=== PATIENT | female | born 1995 | race Caucasian/White ===

== ENCOUNTER 2017-03-24 19:29 | Emergency (ER) | payer BC ==
[2017-03-24 19:36] VITALS: BP 140/81
--- NOTE | 2017-03-24 20:22 | UC ---
Skin Complaint HPI - HPI Summary HPI Summary: sores on face x 2 days left lower lip and right chin area + tender , red, no fever, - History of Current Complaint Chief Complaint: [facility] Time Seen by Provider: 03/24/17 20:05 Stated Complaint: BUMPS ON FACE Hx Obtained From: Patient Hx Last Menstrual Period: 03/22/17 ?: No Onset/Duration: Gradual Onset, Lasting Days - 2, Still Present Timing: Constant Onset Severity: Moderate Current Severity: Moderate Character: Pain, Redness, Painful Aggravating Factor(s): Touch Alleviating Factor(s): Nothing Associated Signs & Symptoms: Positive: Negative - Allergy/Home Medications Allergies/Adverse Reactions: Allergies Allergy/AdvReac Type Severity Reaction Status Date / Time No Known Allergies Allergy Verified 03/24/17 19:35 Review of Systems Constitutional: Negative Skin: Rash Eyes: Negative ENT: Negative Respiratory: Negative Cardiovascular: Negative Is Patient Immunocompromised?: No All Other Systems Reviewed And Are Negative: Yes PMH/Surg Hx/FS Hx/Imm Hx Previously Healthy: Yes - Surgical History Surgical History: Yes Surgery Procedure, Year, and Place: WISDOM TEETH EXTRACTIONS - Family History Known Family History: Positive: Cardiac Disease Negative: Diabetes - Social History Alcohol Use: Occasionally Substance Use Type: None Smoking Status (MU): Never Smoked Tobacco Physical Exam Triage Information Reviewed: Yes Appearance: Well-Appearing, No Pain Distress, Well-Nourished Vital Signs: Initial Vital Signs Temp 98.5 F 03/24/17 19:30 Pulse 62 03/24/17 19:30 Resp 16 03/24/17 19:30 BP 140/81 03/24/17 19:30 Pulse Ox 100 03/24/17 19:30 Vital Signs Reviewed: Yes Eyes: Positive: Conjunctiva Clear ENT: Positive: Normal ENT inspection, Hearing grossly normal, Pharynx normal Neck: Positive: Supple, Nontender, No Lymphadenopathy Respiratory: Positive: Chest non-tender, Lungs clear, Normal breath sounds Cardiovascular: Positive: RRR, No Murmur, Pulses Normal Skin: Positive: rashes - visicular rash left lower lip and righ chin area + erythema, tender , Course/Dx - Diagnoses Provider Diagnoses: cold sores Discharge - Discharge Plan Condition: Stable Disposition: HOME Prescriptions: Mupirocin 2% OINT* [Bactroban 2 % Oint*] 1 applic TOPICAL BID #1 tube ValACYclovir (*) [Valtrex 500 mg (*)] 500 mg PO BID #6 tab Patient Education Materials: Oral Herpes Simplex Virus Infections (ED) Referrals: Non Staff,Doctor [Primary Care Provider] - If Needed
== END 2017-03-24 20:19 | disposition home or self-care (01) ==
LOC: UCCORT 19:29
DX: B00.1 Herpesviral vesicular dermatitis (principal)
CPT/HCPCS: 99212; G0463